=== PATIENT | male | born 1950 | race Caucasian/White ===

== ENCOUNTER 2020-08-26 17:42 | Inpatient (IN) | payer MEDICARE, OTHER ==
[2020-08-26 18:45] LABS: BASOPHIL 0.2 % (0-2); EOSINOPHIL 0 % (0-7); HCT 48.1 % (42.0-52.0); HGB 16.3 g/dl (13.2-18.0); MCH 29.5 pg (25.0-31.0); MCHC 33.9 g/dL (32.0-36.0); MCV 87.1 fL (78.0-100.0); MONOCYTE 10.7 % (0-12); MPV 10.4 fL (6.0-9.5); NEUTROPHIL 70.6 % (41-80); NRBC 0; PLT 176 K/uL (150-400); RBC 5.52 M/uL (4.70-6.00); RDW 12.9 % (11.5-14.0); WBC 6.4 K/uL (4.0-10.5)
[2020-08-26 19:11] LABS: INR 1.19 (0.9-1.2); PROTHROMBIN TIME 14.3 SECONDS (11.4-13.6); PTT 29.2 SECONDS (22.2-34.7)
[2020-08-26 19:19] LABS: ALBUMIN 3.4 g/dL (3.4-5.0); BILIRUBIN - TOTAL 0.7 mg/dL (0.2-1.0); BUN/CREAT RATIO (CALC) 22.8 RATIO; CREATININE 1.62 mg/dL (0.67-1.17); GLOBULIN (CALCULATION) 4.6 g/dL; POTASSIUM 4.4 mmol/L (3.5-5.1)
[2020-08-26 19:26] LABS: CKMB <0.5 ng/mL (0.0-3.6); PRO-BNP 425 pg/mL (<125)
[2020-08-26] MEDS ORDERED: ASPIRIN CHEWABL81 MG PO (21:18)
[2020-08-27 06:23] LABS: BASOPHIL 0.5 % (0-2); EOSINOPHIL 0 % (0-7); HGB 15.8 g/dl (13.2-18.0); LYMPHOCYTE 24.8 % (15-48); MCH 29.9 pg (25.0-31.0); MCHC 34.3 g/dL (32.0-36.0); MONOCYTE 12.3 % (0-12); MPV 10.3 fL (6.0-9.5); NEUTROPHIL 61.9 % (41-80); NRBC 0; PLT 164 K/uL (150-400); RBC 5.29 M/uL (4.70-6.00); RDW 13.1 % (11.5-14.0); WBC 6.3 K/uL (4.0-10.5)
[2020-08-27 06:57] LABS: BILIRUBIN - TOTAL 0.6 mg/dL (0.2-1.0); BUN/CREAT RATIO (CALC) 27.5 RATIO; CREATININE 1.31 mg/dL (0.67-1.17); FT4 (FREE T4) 1.4 ng/dL (0.76-1.46); GLOBULIN (CALCULATION) 4.2 g/dL; MAGNESIUM 2.1 mg/dL (1.8-2.4); POTASSIUM 4.1 mmol/L (3.5-5.1); TOTAL PROTEIN 7.2 g/dL (6.4-8.2)
[2020-08-28 04:23] LABS: BASOPHIL 0.3 % (0-2); EOSINOPHIL 0 % (0-7); HCT 47.1 % (42.0-52.0); HGB 15.9 g/dl (13.2-18.0); LYMPHOCYTE 25.8 % (15-48); MCH 29.2 pg (25.0-31.0); MCHC 33.8 g/dL (32.0-36.0); MCV 86.6 fL (78.0-100.0); MONOCYTE 10.4 % (0-12); MPV 11.1 fL (6.0-9.5); NEUTROPHIL 62.8 % (41-80); NRBC 0; PLT 165 K/uL (150-400); RBC 5.44 M/uL (4.70-6.00); WBC 6.1 K/uL (4.0-10.5)
[2020-08-28 04:42] LABS: BUN/CREAT RATIO (CALC) 29.5 RATIO; CREATININE 1.39 mg/dL (0.67-1.17); POTASSIUM 3.9 mmol/L (3.5-5.1)
[2020-08-28] MEDS ORDERED: ELIQUIS5 MG PO (10:09)
[2020-08-28] MEDS ORDERED: TOPROL XL 25MG25 MG PO (10:09)
[2020-08-28] MEDS ORDERED: CARDIZEM CD180 MG PO (13:11)
== END 2020-08-28 13:47 | disposition home or self-care (01) | DRG 310 ==
LOC: FER 17:42 → FTCU 20:00
PROVIDERS: Emergency Medicine; Nurse Practitioner; Nurse Practitioner Family; ADMIT Internal Medicine
PROC: B24BZZZ Ultrasonography of Heart with Aorta (ICD-10-PCS; principal; 2020-08-26)
DX: I48.0 Paroxysmal atrial fibrillation (principal); I10 Essential (primary) hypertension; Z20.822 Contact with and (suspected) exposure to COVID-19; Z87.81 Personal history of (healed) traumatic fracture
CPT/HCPCS: 36415; 71045; 80048; 80053; 80061; 82553; 83735; 83880; 84439; 84443; 84484; 85025; 85610; 85730; 93005; 97162; 97530-GP; J1644; J1940

== ENCOUNTER 2021-05-23 18:20 | Emergency (ER) | payer MEDICARE, OTHER ==
[~2021-05-23 18:20] MED LIST: ASPIRIN CHEWABL81 MG PO; CARDIZEM CD180 MG PO; ELIQUIS5 MG PO; TOPROL XL 25MG25 MG PO
== END 2021-05-23 20:05 | disposition home or self-care (01) ==
LOC: FER 18:20
DX: S61.212A Laceration without foreign body of right middle finger without damage to nail, initial encounter (principal); I48.91 Unspecified atrial fibrillation; Z23 Encounter for immunization; Z79.01 Long term (current) use of anticoagulants; W29.8XXA Contact with other powered hand tools and household machinery, initial encounter; Y92.009 Unspecified place in unspecified non-institutional (private) residence as the place of occurrence of the external cause
CPT/HCPCS: 90471; 90715